=== PATIENT | male | born 1970 | race Caucasian/White ===

== ENCOUNTER 2019-07-02 20:58 | Emergency (ER) | payer BC ==
[2019-07-02 21:08] VITALS: BP 103/75
[2019-07-02] MEDS ORDERED: Ondansetron ODT TAB* 4 MG PO ONE ×2 (22:15→22:35)
--- NOTE | 2019-07-02 22:21 | UC ---
Abdominal Pain Male HPI - HPI Summary HPI Summary: ONSET OF [place]ARP MID/UPPER ABDOMINAL PAIN THIS EVENING AROUND 6:30 PM. HE HAS SOME NAUSEA BUT NO VOMITING. NO CHANGE IN BOWEL HABITS. NOT ASSOCIATED WITH FOOD. DENIES ANY URINARY SYMPTOMS. NO FEVER. - History of Current Complaint Chief Complaint: UCAbdominalPain Stated Complaint: ADB PAIN Time Seen by Provider: 07/02/19 22:05 Hx Obtained From: Patient, Family/Environmental Lead - Onset/Duration: Gradual Onset, Lasting Hours, Still Present Timing: Constant Severity Initially: Moderate Severity Currently: Moderate Pain Intensity: 4 Pain Scale Used: 0-10 Numeric Radiates: No Character: Sharp Aggravating Factor(s): Nothing Alleviating Factor(s): Nothing Associated Signs And Symptoms: Positive: Nausea. Negative: Fever, Cough, Chest Pain, Back Pain, Constipation, Blood in Stool, Urinary Symptoms, Vomiting, Diarrhea - Allergies/Home Medications Allergies/Adverse Reactions: Allergies Allergy/AdvReac Type Severity Reaction Status Date / Time antibiotic unknown name Allergy Hives Uncoded 07/02/19 21:08 PMH/Surg Hx/FS Hx/Imm Hx Previously Healthy: Yes Other History Of: Negative For: HIV, Hepatitis B - Surgical History Surgical History: None - Family History Known Family History: Positive: Cardiac Disease Negative: Hypertension, Diabetes - Social History Alcohol Use: Occasionally Substance Use Type: Marijuana Substance Use Comment - Amount & Last Used: occasional Smoking Status (MU): Never Smoked Tobacco Review of Systems All Other Systems Reviewed And Are Negative: Yes Constitutional: Positive: Negative Respiratory: Positive: Negative Cardiovascular: Positive: Negative Gastrointestinal: Positive: Abdominal Pain, Nausea Genitourinary: Positive: Negative Physical Exam Triage Information Reviewed: Yes Appearance: Well-Nourished, Pain Distress - MODERATE Vital Signs: Initial Vital Signs Temp 98.0 F 07/02/19 21:05 Pulse 72 07/02/19 21:05 Resp 12 07/02/19 21:05 BP 103/75 07/02/19 21:05 Pulse Ox 98 07/02/19 21:05 Laboratory Tests 07/02/19 21:27 POC Urine Color Yellow POC Urine Clarity Clear POC Urine pH 5.0 POC Ur Specif [place] 1.015 POC Urine Protein Negative POC Ur Glucose (UA) Negative POC Urine Ketones Negative POC Urine Blood Negative POC Urine Nitrite Negative POC Urine Bilirubin Negative POC Urine Urobilinogen 0.2 POC U Leukocyte Esteras Negative Vital Signs Reviewed: Yes Eyes: Positive: Conjunctiva Clear ENT: Positive: Hearing grossly normal, Pharynx normal, TMs normal Neck: Positive: Supple, Nontender, No Lymphadenopathy Respiratory Exam: Normal Cardiovascular Exam: Normal Abdomen Description: Positive: Soft, Other: - TENDERNESS PERIUMBILICAL/ EPIGASTRIC AREA. Negative: CVA Tenderness (R), CVA Tenderness (L), Distended, Guarding Bowel Sounds: Positive: Present Musculoskeletal: Positive: No Edema Neurological: Positive: Alert Psychological: Positive: Normal Response To Family, Age Appropriate Behavior Skin: Negative: Rashes Re-Evaluation - Re-Evaluation First Eval Re-Evaluation Time: 22:35 - NOT SIGNIFICANT CHANGE AFTER ZOFRAN Change: Unchanged Abd Pain Male Course/Dx - Course Course Of Treatment: UNCLEAR ETIOLOGY OF SYMPTOMS. URINE DIP UNREMARKABLE. PATIENT MAY HAVE A VIRAL STOMACH ILLNESS. ADVISED BLAND DIET. STAY HYDRATED. ZOFRAN FOR NAUSEA. TO THE ER WITHOUT FAIL IF SYMPTOMS WORSEN. - Differential Dx/Clinical Impression Provider Diagnosis: Epigastric abdominal pain Discharge ED - Sign-Out/Discharge Documenting (check all that apply): Patient Departure All imaging exams completed and their final reports reviewed: No Studies - Discharge Plan Condition: Stable Disposition: HOME Prescriptions: Ondansetron ODT TAB* [Zofran Odt TAB*] 4 mg PO Q6H PRN #20 tab.odt PRN Reason: Nausea/Vomiting Patient Education Materials: Abdominal Pain (ED) Referrals: Juan Gautam MD [Primary Care Provider] - 3 Days Additional Instructions: URINE TEST UNREMARKABLE. PHYSICAL EXAM NOT SUGGESTIVE OF ANY SPECIFIC ETIOLOGY OF YOUR SYMPTOMS. YOU MAY HAVE PICKED UP A VIRAL STOMACH BUG AND MAY BE DEVELOPING SYMPTOMS ASSOCIATED WITH THIS. STAY WELL HYDRATED. AVOID DAIRY, GREASY, SPICY FOODS, AVOID CAFFEINE AND ALCOHOL. GO TO THE ER WITHOUT FAIL IF YOUR SYMPTOMS WORSEN OR DO NOT IMPROVE EXPECTED. ABDOMINAL PAIN: There are many causes of abdominal pain. Pain can mean a serious problem requiring surgery (such as appendicitis), or an innocent problem which goes away on its own (such as a viral infection). Often, time must pass to determine the cause of pain. The physician does not feel that hospitalization is necessary, at present. Conditions may change, however, within the next 24 hours. GO TO THE ER WITHOUT FAIL IF ANY OF THE FOLLOWING OCCUR: 1) Pain which becomes more severe, steady, or becomes concentrated in one specific area. Also, pain which is more severe with movement or coughing. 2) Vomiting which persists or becomes more frequent. 3) Blood in the vomitus, urine, or bowel movements. Blood in the stool may have a tarry or black appearance. 4) Shaking chills or fever greater than 100 degrees F. 5) The abdomen becomes more distended or swollen. 6) Bowel movements cease. 7) Failure to improve as expected. - Billing Disposition and Condition Condition: STABLE Disposition: Home
== END 2019-07-02 22:45 | disposition home or self-care (01) ==
LOC: UCEAST 20:58
DX: R10.13 Epigastric pain (principal); R11.0 Nausea; Z88.1 Allergy status to other antibiotic agents
CPT/HCPCS: 81003; 99213; A9270-GY; G0463